=== PATIENT | female | born 1995 | race Caucasian/White ===

== ENCOUNTER 2018-10-09 14:29 | Outpatient (CLI) | payer MEDICAID ==
[~2018-10-09] VITALS: Ht 154.9 cm; Wt 68.3 kg
[~2018-10-09 14:29] MED LIST: IBUP-1542 PO
[2018-10-09 14:43] VITALS: BP 109/58; PULSE 75; RESP 18; Ht 154.9 cm; Wt 68.3 kg
[2018-10-09] MEDS ORDERED: PREN1TAB71 PO (14:46)
[2018-10-09] MEDS ORDERED: FERR325T5 PO (14:46)
--- NOTE | 2018-11-13 15:35 | PN ---
Triage Information Date/Time 10/09/2018 Reason for visit: Uterine contractions Weeks of Gestation 39 weeks and 1 day /Para 1 para 0 Diabetes: none Hypertention: none Additional information 23-year-old with IUP at 39 weeks and 1 day presented with complaint of uterine contractions. She denies any leaking of fluid, vaginal bleeding and decreased movement. Denies any urinary symptoms. Objective Heart Rate: 130's Heart Rate Comments Category 1 Contractions: 6-10 Minutes Apart Exam General appearance: Alert and oriented x4 does not appear to be in any acute distress Abdomen: Soft, gravid, fundal height consider gestational age NST: Category 1 BPP: 8 out of 8 Size consistent with dates by ultrasound NOEMY normal Symptoms resolved after hydration Results/Medications Imaging Results ROCEDURE: US OB biophysical profile. CLINICAL INDICATION: decreased movements, pelvic pain TECHNIQUE: Multiple sonographic images of the pelvis were obtained. The images were reviewed on a PACS workstation. COMPARISON: No prior studies are available for comparison. FINDINGS: There is a single live intrauterine gestation. Cardiac activity is present with 134 beats per minute. There is a vertex presentation. The placenta is anterior. There is no evidence of placental abruption. There is a normal amount of amniotic fluid with an NOEMY = 13.3 cm. Biophysical profile: movement 2/2 tone 2/2. breathing 2/2 NOEMY 2/2 Total 8 RPTAT: AA . IMPRESSION: Normal biophysical profile. .PROCEDURE: US OB. CLINICAL INDICATION: Size and dates , pelvic pain TECHNIQUE: Multiple sonographic images of the pelvis and gravid uterus were obtained. The images were reviewed on a PACS workstation. COMPARISON: No prior studies are available for comparison. FINDINGS: Gestation: Single live intrauterine gestation. Cardiac activity: 144 beats per minute. Presentation: Vertex. Placenta: Location: Anterior. Appearance: No previa or abruption. Measurements: BPD = 9.1 cm, 36 weeks and 6 days HC = 33.1 cm, 37 weeks and 5 days AC = 36.8 cm, 40 weeks and 5 days FL = 7.6 cm, 38 weeks and 5 days Gestational Age: AUA estimated gestational age: 38 weeks 4 days LMP estimated gestational age: 39 weeks 1 day AUA estimated date of delivery: 10/19/18 The EFW = 3786 g, 76.9%ile based on LMP age. RPTAT: AA IMPRESSION: Single live intrauterine gestation of 38 weeks 4 days by ultrasound criteria. .Dong Soares MD, MD Date Time Electronically viewed and signed by .Dong Soares MD, MD on 10/09/2018 15:52 .S/ CC: ADI [place] [phone] Disposition: Discharge Assessment/Plan IUP at 39 weeks and 1 day Not in labor False labor contraction, resolved after hydration DC home testing reassuring Labor precautions kick count discussed Follow-up with primary OB office within 48 hours after discharge from the hospital discussed All questions were answered to patient's best satisfaction JEANNINE FRANCIS MD Nov 13, 2018 15:35
== END 2018-10-09 17:50 | disposition home or self-care (01) ==
LOC: L-D 14:29 → OBT 14:29 → L-D 15:20 → OBT 15:20
PROVIDERS: ATTEND Obstetrics & Gynecology
DX: O62.9 Abnormality of forces of labor, unspecified (principal); Z3A.39 39 weeks gestation of pregnancy
CPT/HCPCS: 76815; 76818; 81001; 87086; Z7500; G0463

== ENCOUNTER 2018-10-11 00:17 | Inpatient (IN) | END 2018-10-14 16:10 | disposition home or self-care (01) | DRG 788 ==